=== PATIENT | female | born 1980 | race Caucasian/White ===

== ENCOUNTER → 2016-03-28 | Outpatient (CLI) | payer BC ==
--- NOTE | 2016-03-29 07:23 | CT ---
EXAMINATION TYPE: CT abdomen wo con DATE OF EXAM: 03/28/2016 7:33 PM COMPARISON: NONE HISTORY: Upper Abdominal pain with distension CT DLP: 245.7 mGycm Automated exposure control for dose reduction was used. TECHNIQUE: Helical acquisition of images was performed from the lung bases through the top of iliac crest to include entire abdomen. CONTRAST: Performed with Oral Contrast and without IV contrast. FINDINGS: Bilateral breast implants are in place. Visualized portions of the lungs are clear. There is no pleural or pericardial fluid. Within the abdomen, the liver, spleen and gallbladder are normal. Both adrenal glands are normal. There is no evidence of nephrolithiasis or hydronephrosis. The pancreas is unremarkable. There is no significant retroperitoneal adenopathy. There are some questionable focal thickening of the descending colon. The appendix is not visualized. Small bowel loops appear normal. No free air and no free fluid is seen. There is sclerosis of the sacroiliac joints. There is facet arthropathy in the lower lumbar spine. IMPRESSION: 1. QUESTIONABLE FOCAL THICKENING OF THE DESCENDING COLON. PLEASE CORRELATE CLINICALLY TO EXCLUDE COLI TIS. 2. SCLEROSIS OF THE SI JOINTS WHICH CAN BE SEEN IN THE INFLAMMATORY ARTHRITIDES WELL INFLAMMATO RY BOWEL DISEASE.
== END ==
LOC: RADCTMAIN 18:22 → MERGE 19:20
PROVIDERS: ATTEND Family Medicine
DX: R10.9 Unspecified abdominal pain (principal)
CPT/HCPCS: 74150

== ENCOUNTER → 2016-04-05 | Outpatient (CLI) | payer BC ==
--- NOTE | 2016-04-05 13:10 | US ---
EXAMINATION TYPE: US gallbladder DATE OF EXAM: 04/05/2016 12:40 PM COMPARISON: CT abdomen 8 days ago. CLINICAL HISTORY: Gen Abd Pain R10.84. Intermittent epigastric and RUQ pain, bloating, indigestion EXAM MEASUREMENTS: Liver Length: 14.6 cm Gallbladder Wall: 0.2 cm CBD: 0.3 cm Right Kidney: 9.2 x 3.3 x 3.7 cm TECHNOLOGIST IMPRESSION: Pancreas: visualized portions appear wnl Liver: appears wnl Gallbladder: no evidence of stones Evidence for sonographic Pickett's sign: no CBD: wnl Right Kidney: no evidence of hydronephrosis or mass IMPRESSION: No gallstones or ultrasound evidence for acute cholecystitis.
--- NOTE | 2016-04-05 14:53 | NM ---
EXAMINATION TYPE: NM hepatobiliary w CCK DATE OF EXAM: 04/05/2016 2:39 PM COMPARISON: Same day gallbladder ultrasound. HISTORY: Generalized abdominal pain per order. TECHNIQUE: After the intravenous administration of 5.4 mCi Tc 99m Mebrofenin hepatobiliary scintigrap hy is performed. Immediate images post injection. FINDINGS: There is satisfactory initial accumulation of tracer by the liver. The gallbladder is visualized wit hin 20 minutes. The small bowel activity is noted within 15th minutes. At one hour CCK was administ ered, patient was injected with 1.4 mcg of Kinevac, and gallbladder ejection fraction is calculated a t 8 %, markedly diminished from the normal range. Therefore there is no scintigraphic evidence of cy stic or common bile duct obstruction to suggest acute cholecystitis. Overall diminished ejection frac tion is consistent with chronic cholecystitis or gallbladder dyskinesia. IMPRESSION: Ejection fraction is 8%, diminished from the normal range. Scintographic findings are con sistent with gallbladder dyskinesia.
== END | disposition home or self-care (01) ==
LOC: RADUSMAIN 12:08
PROVIDERS: ATTEND Surgery
DX: K82.9 Disease of gallbladder, unspecified (principal); R10.84 Generalized abdominal pain
CPT/HCPCS: 76705; 78227; A9537; J2805

== ENCOUNTER 2016-04-19 08:36 | Day surgery (SDC) | payer BC ==
[2016-04-16 18:32] VITALS: BMI 29.4
[~2016-04-19 08:36] MED LIST: LACTATED RINGERS 1,000 ML IV SCH
== END 2016-04-19 09:54 | disposition home or self-care (01) ==
LOC: ORWHC2ENDO 08:36
PROVIDERS: ATTEND Surgery
DX: K92.2 Gastrointestinal hemorrhage, unspecified (principal)

== ENCOUNTER → 2016-06-03 | Outpatient (CLI) | payer BC ==
--- NOTE | 2016-06-03 10:24 | US ---
EXAMINATION TYPE: US OB <= 14 wk fetus DATE OF EXAM: 06/03/2016 9:52 AM COMPARISON: NONE CLINICAL HISTORY: 35-year-old female O46.91 Bleeding. Spotting last night Date of LMP: 03/14/2016 EXAM PERFORMED: Transvaginal (TV) and Transabdominal (TA) FINDINGS: EXAM MEASUREMENTS: GESTATIONAL AGE / DATING Physician Established: (10 weeks/2 days) EDC: 12/28/2016 Dates by LMP: (11 weeks/4 days) EDC: 12/19/2016 Dates by First Scan: (10 weeks/2 days) EDC: 12/28/2016 Dates by Current Scan for: ( 9 weeks/4 days +/- 6 days) EDC: 01/02/2017 MATERNAL ANATOMY Uterus: 8.0 x 4.5 x 4.2 cm. nabothian cyst 0.5 x 0.3 x 0.4 cm Right Ovary: 2.7 x 1.5 x 2.2 cm Left Ovary: not seen Post CDS / Adnexa: wnl Presence of free fluid: no Presence of corpus luteal cyst: no Presence of subchorionic bleed: no, though there may be a trace amount of fluid in the uterine cavity along the lower uterine segment, image 18. GESTATION / SURVEY MSD: 4.0 cm (9 weeks/4 days) Yolk Sac (normal less than 6mm): 0.5 Heart Rate: 138 bpm Rhythm: Normal IUP: Viable IUP BPD: 1.4 cm : 12w/1 FL: 0.6 cm: 12w/0 IMPRESSION: 1. Single live intrauterine with established gestational age of 10 weeks 2 days by prior da ting scan (not in the system). Current ultrasound biometry is calculated largely based on gestational sac (9 weeks 4 days, which is small and just barely concordant) as femur length and BPD were measuri ng large and out of range. Consider short interval follow-up in 2-3 weeks to assess for appropriate i nterval growth. 3. No significant perigestational bleed though a small amount of fluid is noted along the lower uteri ne segment. 4. Complete survey recommended at 18-20 weeks.
== END ==
LOC: RADUSWWP 09:19
PROVIDERS: ATTEND Obstetrics & Gynecology
DX: O26.891 Other specified pregnancy related conditions, first trimester (principal); N88.8 Other specified noninflammatory disorders of cervix uteri; N83.10 Corpus luteum cyst of ovary, unspecified side; Z3A.09 9 weeks gestation of pregnancy
CPT/HCPCS: 76801; 76817

== ENCOUNTER → 2016-06-26 | Outpatient (CLI) | payer BC ==
--- NOTE | 2016-06-26 11:20 | US ---
EXAMINATION TYPE: US OB TV Cervical Measurement DATE OF EXAM: 06/26/2016 11:11 AM COMPARISON: NONE REASON FOR EXAM: Per Ordering Physician?this transvaginal scan is to assess the CERVICAL LENGTH for i ncompetence or funneling. 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 GESTATIONAL AGE / DATING Physician Established: (13 weeks/4 days) EDC: 12/28/2016 MATERNAL/ SURVEY CERVICAL LENGTH (transvaginal: norm> 2.5cm): 2.7 cm Ultrasound evidence of shortened cervix? NO Ultrasound evidence of funneling? NO HEART RATE: 161 bpm RHYTHM: Normal IMPRESSION: Cervical length measures 2.7 cm and slightly outside the normal limits. Correlate clinically.
== END | disposition home or self-care (01) ==
LOC: RADUSWWP 10:33
PROVIDERS: ATTEND Obstetrics & Gynecology
DX: R93.8 Abnormal findings on diagnostic imaging of other specified body structures (principal)
CPT/HCPCS: 76817

== ENCOUNTER 2016-12-01 21:15 | Inpatient (IN) | payer BC ==
[2016-12-01] MEDS ORDERED: OXYTOCIN 10 UNIT/ML 1 ML VIAL IM PRN (22:26)
[2016-12-01] MEDS ORDERED: METHYLERGONOVINE 0.2 MG/ML 1 ML AMP IM PRN (22:26)
[2016-12-01] MEDS ORDERED: TERBUTALINE 1 MG/ML VIAL SQ PRN (22:26)
[2016-12-01] MEDS ORDERED: CARBOPROST TROMETHAMINE 250 MCG/ML 1 ML AMP IM PRN (22:26)
[2016-12-01] MEDS ORDERED: LIDOCAINE 1% (PF) 10 MG/ML (30 ML SDV) SQ PRN (22:26)
[2016-12-01] MEDS ORDERED: AMPICILLIN 2,000 MG in SODIUM CHLORIDE 0.9% 100 ML IVPB STA (22:37)
[2016-12-02 00:29] LABS: Basophils % (A) 0 %; CH 30.1; CHCM 34.1; Eosinophils # (A) 0.1 k/uL (0-0.7); Eosinophils % (A) 1 %; HCT 36.5 % (34.0-46.0); HDW 3.05; HGB 12.1 gm/dL (11.4-16.0); Luc # (Auto) 0.17; Luc % (Auto) 2; Lymphocytes # (A) 1.4 k/uL (1.0-4.8); Lymphocytes % (A) 14 %; MCH 29.3 pg (25.0-35.0); MCHC 33.1 g/dL (31.0-37.0); MCV 88.6 fL (80.0-100.0); Monocytes # (A) 0.5 k/uL (0-1.0); Monocytes % (A) 6 %; Neutrophils # (A) 7.3 k/uL (1.3-7.7); Neutrophils % (A) 77 %; RBC 4.12 m/uL (3.80-5.40); WBC 9.4 k/uL (3.8-10.6); WBC (Perox) 9.23
[2016-12-02 00:37] LABS: Uric Acid 5.1 mg/dL (3.7-7.4)
[2016-12-02 00:39] VITALS: BMI 33.7
[2016-12-02 00:39] LABS: Appearance,Urine Clear (Clear); Bilirubin,Urine Negative (Negative); Glucose,Urine (UA) Negative (Negative); Ketones,Urine Negative (Negative); Leukocyte Esterase,Urine Negative (Negative); Nitrite,Urine Negative (Negative); PH, Urine 6.5 (5.0-8.0); Protein,Urine Negative (Negative); Specific Gravity,Urine 1.013 (1.001-1.035); UA Billing (MACRO vs. MICRO) CHEM; Urobilinogen,Urine <2.0 mg/dL (<2.0)
[2016-12-02] MEDS: LACTATED RINGERS 1,000 ML IV SCH ×6 (00:43→21:06)
[2016-12-02] MEDS: AMPICILLIN 1,000 MG in SODIUM CHLORIDE 0.9% 50 ML IVPB SCH ×2 (03:35→07:30)
[2016-12-02] MEDS: BUTORPHANOL 1 MG/ML 1 ML VIAL IV PRN ×2 (03:50→03:57)
[2016-12-02] MEDS ORDERED: OXYTOCIN 20 UNITS/1000 ML NS 1,000 ML IV SCH (05:30)
[2016-12-02] MEDS ORDERED: MORPHINE SULFATE (PF) 0.3 MG/0.3 ML SYR ONE (08:21)
[2016-12-02] MEDS ORDERED: NALBUPHINE 10 MG/ML AMPUL ONE (08:21)
[2016-12-02] MEDS ORDERED: ONDANSETRON 4 MG/2 ML VIAL ONE (08:21)
[2016-12-02] MEDS ORDERED: KETOROLAC 30 MG/ML 1 ML VIAL ONE (08:21)
[2016-12-02] MEDS ORDERED: OXYTOCIN 10 UNIT/ML 1 ML VIAL ONE (08:21)
[2016-12-02] MEDS ORDERED: LACTATED RINGERS 1,000 ML BAG IV ONE (08:21)
[2016-12-02] MEDS ORDERED: ePHEDrine 50 MG/ML 1 ML AMP ONE (08:21)
[2016-12-02] MEDS ORDERED: ceFAZolin 1,000 MG VIAL ONE (08:21)
[2016-12-02] MEDS ORDERED: diphenhydrAMINE 50 MG/ML 1 ML VIAL IVP PRN ×3 (08:57→09:42)
[2016-12-02] MEDS ORDERED: MORPHINE SULFATE 4 MG/ML SYRINGE IVP PRN (08:57)
[2016-12-02] MEDS ORDERED: NALOXONE 0.4 MG/ML 1 ML VIAL IV PRN (08:57)
[2016-12-02] MEDS ORDERED: ONDANSETRON 4 MG/2 ML VIAL IVP PRN ×2 (08:57→09:42)
--- NOTE | 2016-12-02 09:17 | P.HPOB ---
History of Present Illness H&P Date: 12/02/16 Chief Complaint: Spontaneous rupture of membranes This is a very pleasant 36-year-old 1 para 0 at 36-2/7 weeks that presented to labor and delivery on 10:15 with complaints of rupture of membranes. She was grossly ruptured and admitted to labor and delivery. Pitocin augmentation was started as she was fingertip dilated. This morning on exam patient was noted to be in the breech presentation therefore Pitocin augmentation was discontinued and counseling was done for a primary low transverse section. Review of Systems Constitutional: Denies fatigue, Denies fever Cardiovascular: Reports edema, Denies chest pain Respiratory: Denies cough, Denies dyspnea Gastrointestinal: Denies diarrhea, Denies nausea, Denies vomiting Psychiatric: Denies anxiety, Denies depression Past Medical History Past Medical History: GERD/Reflux, Osteoarthritis (OA) Additional Past Medical History / Comment(s): SLIGHT HEART MURMUR History of Any Multi-Drug Resistant Organisms: None Reported Past Surgical History: Breast Surgery, Hernia Repair Additional Past Surgical History / Comment(s): OPEN HEART A CHILD VSD REPAIR, BREAST AUGMENTATION Past Anesthesia/Blood Transfusion Reactions: Motion Sickness Past Psychological History: No Psychological Hx Reported Smoking Status: Never smoker Past Alcohol Use History: Rare Past Drug Use History: None Reported - Past Family History Mother Family Medical History: No Reported History Medications and Allergies Home Medications Medication Instructions Recorded Confirmed Type No Known Home Medications [No 04/16/16 12/01/16 History Known Home Medications] Pnv,Calcium 72/Iron/Folic Acid 1 tab PO ONCE 12/01/16 12/01/16 History [ Plus Tablet] Allergies Allergy/AdvReac Type Severity Reaction Status Date / Time No Known Allergies Allergy Verified 04/16/16 18:16 Exam Osteopathic Statement: *. No significant issues noted on an osteopathic structural exam other than those noted in the History and Physical/Consult. - Vital Signs Vital signs: Vital Signs Temp Pulse Resp BP 12/01/16 22:32 98.1 F 84 16 140/90 12/01/16 21:22 98.1 F 84 16 140/90 Intake and Output 12/01/16 12/02/16 12/02/16 22:59 06:59 14:59 Other: # Voids 2 Weight 75.75 kg - OBG Physical Exam Abdomen: bowel sounds normal Uterus: Gravid Uterus: enlarged Results Result Diagrams: 12/02/16 00:07 Assessment and Plan (1) Full-term premature rupture of membranes, unspecified as to length of time between rupture and onset of labor Narrative/Plan: Primary low transverse section was performed this morning with delivery of viable female at 839. Baby B was in a breech presentation. 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 Weight of the 5 lbs. 0 oz. Apgars of 9 and 9 at one and 5 minutes respectively. Routine postoperative care is begun Status: Acute
[2016-12-02] MEDS ORDERED: CITRIC ACID-SODIUM CITRATE 15 ML CUP PO ONE (09:20)
--- NOTE | 2016-12-02 09:23 | P.OP ---
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 She was then prepped and draped in normal sterile fashion in the dorsal supine position. A Pfannenstiel skin incision was made with a scalpel and carried through the underlying layer of fascia. The fascia was then incised in the midline and extended laterally. The superior aspect of the fascial incision was grasped with Liz[place] clamps, elevated and underlying rectus muscle was dissected off sharply. The inferior aspect of the fascial incision was then grasped with [place] clamps, elevated and underlying rectus muscles dissected off sharply once again. The rectus muscles were in the peritoneum was identified and entered. The incision was then extended superiorly and inferiorly with good visualization the bladder. The bladder blade was then inserted and the vesicouterine peritoneum was identified. The bladder flap was then created using sharp and blunt dissection. The bladder blade was then reinserted into the pelvis. Hysterotomy incision was made sharply with the scalpel and the was delivered in the normal breech fashion. The was then handed off to awaiting RN after the cord was doubly clamped and cut. The placenta was then delivered manually and the uterus was cleared of all clots and debris. A unicornuate uterus was noted at this point the responsible for labor/rupture of membranes at 36-2/7 weeks. Uterus was then closed with a running locked suture of 0 Vicryl hemostasis was appreciated. The pelvis was then copiously irrigated. The hysterotomy site was inspected once again hemostasis was noted. The uterus was then returned to the abdomen, the fascia was then closed with 0 Vicryl in a running fashion from one lateral edge the midline and the other lateral edge the midline. The subcutaneous tissue was inspected hemostasis was appreciated and the skin was closed with 4-0 Vicryl in a subarticular fashion Steri-Strips and sterile dressings were applied. All counts were correct 2 patient tolerated procedure well and was taken the recovery room awake and in stable condition
[2016-12-02] MEDS ORDERED: LACTATED RINGERS 1,000 ML IV SCH (09:30)
[2016-12-02] MEDS ORDERED: ZOLPIDEM 5 MG TAB PO PRN (09:42)
[2016-12-02] MEDS ORDERED: diphenhydrAMINE 25 MG CAP PO PRN (09:42)
[2016-12-02] MEDS ORDERED: ACETAMINOPHEN TAB 325 MG TAB PO PRN (09:42)
[2016-12-02] MEDS ORDERED: METOCLOPRAMIDE 5 MG/ML 2 ML VIAL IVP PRN (09:42)
[2016-12-02] MEDS ORDERED: diphenhydrAMINE 50 MG CAP PO PRN (09:42)
[2016-12-02] MEDS: KETOROLAC 30 MG/ML 1 ML VIAL IVP PRN (13:55)
[2016-12-02] MEDS: SENNOSIDES-DOCUSATE SODIUM 1 EACH TAB PO SCH (21:06)
[2016-12-03] MEDS: KETOROLAC 30 MG/ML 1 ML VIAL IVP PRN
[2016-12-03] MEDS: LACTATED RINGERS 1,000 ML IV SCH
[2016-12-03 07:19] LABS: Basophils % (A) 0 %; CH 30.2; CHCM 33.5; Eosinophils # (A) 0.1 k/uL (0-0.7); Eosinophils % (A) 1 %; HCT 31.3 % (34.0-46.0); HDW 2.98; HGB 10.2 gm/dL (11.4-16.0); Luc # (Auto) 0.16; Luc % (Auto) 2; Lymphocytes # (A) 1.4 k/uL (1.0-4.8); Lymphocytes % (A) 14 %; MCH 29.5 pg (25.0-35.0); MCHC 32.6 g/dL (31.0-37.0); MCV 90.4 fL (80.0-100.0); Mean Platelet Volume 8.1; Monocytes # (A) 0.5 k/uL (0-1.0); Monocytes % (A) 5 %; Neutrophils # (A) 7.5 k/uL (1.3-7.7); Neutrophils % (A) 78 %; RBC 3.47 m/uL (3.80-5.40); RDW 14.3 % (11.5-15.5); WBC 9.6 k/uL (3.8-10.6); WBC (Perox) 10.06
--- NOTE | 2016-12-03 07:59 | P.PN ---
Progress Note - Text Date: 12/03/2016 Time: 0753 The patient is status post section Vital signs stable VAS: 0-10 Patient has no complaints of pain. The patient incurred some minimal itching yesterday, this itching is now subsiding. Pain meds to be managed by service.
[2016-12-03] MEDS: SENNOSIDES-DOCUSATE SODIUM 1 EACH TAB PO SCH ×2 (11:39→19:54)
--- NOTE | 2016-12-03 11:45 | P.PNOBGPC ---
Subjective - Subjective Principal diagnosis: Postop day 1 s/p LTCS Interval history: Elisha is doing well on this postoperative day #1. She is ambulating and voiding without difficulty. Her pain is controlled. She is tolerating clear liquids, and we will advance her diet to regular for lunch. He states her lochia is minimal and she is breast-feeding with some difficulty. Patient reports: Reports appetite normal, Reports voiding normally, Reports pain well controlled, Reports ambulating normally : doing well (Under the bili lights) Objective - Vital Signs Latest vital signs: Vital Signs Temp Pulse Pulse Resp BP BP Pulse Ox 12/03/16 11:00 18 12/03/16 09:00 18 12/03/16 08:00 98.3 F 86 16 112/72 97 12/03/16 07:00 16 12/03/16 05:00 15 12/03/16 04:00 98 F 89 15 128/72 12/03/16 03:00 15 12/03/16 01:00 15 12/03/16 00:00 98 F 89 15 125/70 12/02/16 23:00 15 12/02/16 21:00 15 12/02/16 20:00 98 F 90 15 128/73 12/02/16 19:00 16 12/02/16 17:00 16 98 12/02/16 16:00 97.8 F 78 16 129/75 98 12/02/16 15:00 16 98 12/02/16 13:58 20 96 12/02/16 12:44 97.6 F 90 20 110/74 96 12/02/16 12:22 97.6 F 90 20 110/74 96 Intake and Output 12/02/16 12/03/16 12/03/16 22:59 06:59 14:59 Intake Total 1000 0 Output Total 800 600 Balance -800 400 0 Intake: Intake, IV Titration 1000 0 Amount Lactated Ringers 1,000 ml 0 @ 125 mls/hr IV .Q8H JONG Rx#:[id number] Lactated Ringers 1,000 ml 1000 @ 125 mls/hr IV .Q8H JONG Rx#:[id number] Output: Urine 300 600 Uretheral (Harris) 200 Estimated Blood Loss 500 Other: # Voids 1 # Bowel Movements 0 - Exam Lungs: bilateral: normal Extremities: Present: normal Abdomen: Present: normal appearance, soft Incision: Present: normal, dry Uterus: Present: firm - Labs Labs: Abnormal Lab Results - Last 24 Hours (Table) 12/03/16 Range/Units 06:59 RBC 3.47 L (3.80-5.40) m/uL Hgb 10.2 L (11.4-16.0) gm/dL Hct 31.3 L (34.0-46.0) % Plt Count 142 L (150-450) k/uL Assessment and Plan (1) Full-term premature rupture of membranes, unspecified as to length of time between rupture and onset of labor Narrative/Plan: Will advance diet this afternoon. We will continue to use oral pain medications as needed per patient request. Anticipate discharge home tomorrow if continues to do well. Current Visit: Yes Status: Acute Code(s): O42.92 - FULL-TERM NOÉ ROM, UNSP TIME BETW RUPTURE AND ONSET LABOR SNOMED Code(s): 02523765 (2) Unicornate uterus Current Visit: Yes Status: Acute Code(s): Q51.4 - UNICORNATE UTERUS SNOMED Code(s): 8499385
[2016-12-03] MEDS: IBUPROFEN 600 MG TAB PO PRN ×2 (14:27→19:32)
[2016-12-03] MEDS: Acetaminophen-Codeine 300-30mg TAB PO PRN ×2 (16:04→23:16)
[2016-12-04] MEDS: Acetaminophen-Codeine 300-30mg TAB PO PRN ×3 (06:53→20:53)
[2016-12-04] MEDS: SENNOSIDES-DOCUSATE SODIUM 1 EACH TAB PO SCH ×2 (07:45→20:56)
[2016-12-04] MEDS: LACTATED RINGERS 1,000 ML IV SCH (07:46)
--- NOTE | 2016-12-04 08:12 | P.PNOBGPC ---
Subjective - Subjective Principal diagnosis: day #2 Interval history: Patient continues to do well on this day #2. She is ambulating and voiding without difficulty. Lochia is minimal. She is using oral pain medication for discomfort. He is struggling with breast-feeding as her milk has not come in. Her infant girl is under bili lights currently Patient reports: Reports appetite normal, Reports voiding normally, Reports pain well controlled, Reports ambulating normally : doing well (Being treated for hyperbilirubinemia under the bili lights) Objective - Vital Signs Latest vital signs: Vital Signs Temp Pulse Pulse Resp BP BP Pulse Ox 12/04/16 04:00 98.2 F 79 16 109/64 12/03/16 23:20 97.8 F 74 16 112/76 12/03/16 20:00 98 F 70 16 117/76 12/03/16 16:00 98.4 F 81 16 119/79 99 12/03/16 13:00 16 12/03/16 11:00 18 12/03/16 09:00 18 - Exam Lungs: bilateral: normal Extremities: Present: normal Abdomen: Present: normal appearance, soft Incision: Present: normal, dry, intact Assessment and Plan (1) Full-term premature rupture of membranes, unspecified as to length of time between rupture and onset of labor Narrative/Plan: We'll continue routine postoperative care of this patient. Given the is being treated under the bili lights will anticipate discharge later this week. Current Visit: Yes Status: Acute Code(s): O42.92 - FULL-TERM NOÉ ROM, UNSP TIME BETW RUPTURE AND ONSET LABOR SNOMED Code(s): 21436156 (2) Unicornate uterus Current Visit: Yes Status: Acute Code(s): Q51.4 - UNICORNATE UTERUS SNOMED Code(s): 8824744
[2016-12-04] MEDS: IBUPROFEN 600 MG TAB PO PRN ×3 (11:34→23:55)
[2016-12-04] MEDS ORDERED: SIMETHICONE 80 MG CHEWABLE PO PRN (20:38)
[2016-12-05] MEDS: Acetaminophen-Codeine 300-30mg TAB PO PRN ×2 (04:24→08:18)
[2016-12-05] MEDS: IBUPROFEN 600 MG TAB PO PRN ×2 (05:58→12:23)
[2016-12-05] MEDS: SENNOSIDES-DOCUSATE SODIUM 1 EACH TAB PO SCH (08:18)
[2016-12-05 08:38] VITALS: BP 120/82; PULSE 91; RESP 18; TEMP 97.6
--- NOTE | 2016-12-05 09:12 | P.PNOBGPC ---
Subjective - Subjective Principal diagnosis: postop day 3, LTCS Interval history: on postop day 3 Sean is doing well. She is ambulating, and voiding without difficulty. She is tolerating a regular diet without nausea or vomiting. Her pain is controlled with oral medications. Her lochia is minimal and she is still struggling with breast-feeding but her milk appears to be coming in. she wishes discharge home today Patient reports: Reports appetite normal, Reports voiding normally, Reports pain well controlled, Reports ambulating normally [place]: doing well Objective - Vital Signs Latest vital signs: Vital Signs Temp Pulse Resp BP Pulse Ox 12/05/16 08:00 97.6 F 91 18 120/82 12/05/16 00:00 97.9 F 73 16 129/73 100 12/04/16 20:30 98.7 F 87 16 126/87 100 12/04/16 16:00 98.8 F 70 18 123/85 100 - Exam Lungs: bilateral: normal Extremities: Present: normal Abdomen: Present: normal appearance Incision: Present: normal, dry, intact Uterus: Present: normal, firm, bogginess Assessment and Plan Assessment: Will plan discharge home, discharge instructions are reviewed with the patient in detail, perceptions are given for Motrin and Tylenol No. 3. She was 30 given a perception for a breast pump (1) Full-term premature rupture of membranes, unspecified as to length of time between rupture and onset of labor Current Visit: Yes Status: Acute Code(s): O42.92 - FULL-TERM NOÉ ROM, UNSP TIME BETW RUPTURE AND ONSET LABOR SNOMED Code(s): 82526402 (2) Unicornate uterus Current Visit: Yes Status: Acute Code(s): Q51.4 - UNICORNATE UTERUS SNOMED Code(s): 7458287
--- NOTE | 2016-12-05 09:14 | P.DS ---
Providers Date of admission: 12/01/16 22:09 Expected date of discharge: 12/05/16 Attending physician: Eri Nichole Primary care physician: Eri Nichole - Discharge Diagnosis(es) (1) Full-term premature rupture of membranes, unspecified as to length of time between rupture and onset of labor is a very pleasant 36-year-old 1 para 0 that presented to labor and delivery on 10:15 with spontaneous rupture of membranes. She was 36 weeks and 2 days. She was not in labor at that time therefore Pitocin augmentation was begun. The next morning patient was noted to be 1 cm and was in a breech presentation. Therefore primary low transverse section was performed. For further details on the please see the operative report. Postoperative care has been benign on day #3 she is feeling well ambulatory and voiding without difficulty. She is is tolerating a regular diet without nausea or vomiting and she denies concerns. Her pain is controlled with by mouth medications. She is breast-feeding with some difficulty as her milk is not coming in yet. Current Visit: Yes Status: Acute (2) Unicornate uterus Current Visit: Yes Status: Acute Plan - Discharge Summary New Discharge Prescriptions: No Action No Known Home Medications [No Known Home Medications] Pnv,Calcium 72/Iron/Folic Acid [ Plus Tablet] 1 tab PO ONCE Discharge Medication List No Known Home Medications [No Known Home Medications] 04/16/16 [History] Pnv,Calcium 72/Iron/Folic Acid [ Plus Tablet] 1 tab PO ONCE 12/01/16 [ History] Follow up Appointment(s)/Referral(s): Eri Nichole DO [Primary Care Provider] - 2 Weeks Patient Instructions/Handouts: (DC)
== END 2016-12-05 13:01 | disposition home or self-care (01) | DRG 766 ==
LOC: FBPOP 21:15 → 4FBP 22:09
PROVIDERS: ADMIT Obstetrics & Gynecology; ATTEND Obstetrics & Gynecology Obstetrics
PROC: 10D00Z1 Extraction of Products of Conception, Low, Open Approach (ICD-10-PCS; principal; 2016-12-02 09:15)
DX: O32.1XX0 Maternal care for breech presentation, not applicable or unspecified (principal); O42.913 Preterm premature rupture of membranes, unspecified as to length of time between rupture and onset of labor, third trimester; Q51.4 Unicornate uterus; Z3A.36 36 weeks gestation of pregnancy; Z37.0 Single live birth
CPT/HCPCS: 59025; 81003; 84112; 84450; 84460; 84550; 85025; 88307; 99213

== ENCOUNTER → 2017-08-21 | Outpatient (CLI) | payer BC ==
--- NOTE | 2017-08-21 07:59 | MR ---
EXAMINATION TYPE: MR brain wo/w con DATE OF EXAM: 08/21/2017 COMPARISON: None HISTORY: Neoplasm / New Onset Severe Headaches / Confusion TECHNIQUE: Multiplanar, multisequence images of the brain and brainstem is performed without and with IV contras t, utilizing 7 mL intravenous Gadavist . FINDINGS: Diffusion weighted images demonstrate no evidence of a recent infarct or other diffusion ab normality. There is no extra-axial fluid collection or significant white matter signal abnormality. The ventricular system and cisternal spaces are normal in size and appearance. The brain volume is age appropriate. Midline structures demonstrate normal morphology. The craniocervical junction appears within normal limits. Post contrast images demonstrate no abnormal enhancement. Changes of chronic sinusitis noted. Clivus appears to be either pneumatized or diminutive in size. IMPRESSION: 1. No acute intracranial process. 2. Changes of chronic sinusitis
== END | disposition home or self-care (01) ==
LOC: RADMRIMAIN 06:07
PROVIDERS: ATTEND Psychiatry & Neurology Neurology
DX: R51 Headache (principal); H53.9 Unspecified visual disturbance
CPT/HCPCS: 70553; A9581

== ENCOUNTER → 2019-03-27 | Outpatient (CLI) | payer BC ==
[2019-03-27 18:55] LABS: ALT 22 U/L (8-44); AST 25 U/L (13-35); African American GFR (CKD) 109.2 (60.0-200.0); Glucose 102 mg/dL (70-110); Non-African American GFR(CKD) 94.2 (60.0-200.0)
[2019-03-27 18:56] LABS: Insulin Level 12.1 mIU/mL (3.0-25.0)
[2019-03-27 19:03] LABS: Prolactin 6.6 ng/mL (2.8-29.2)
[2019-03-27 19:04] LABS: Estradiol 45.4 pg/mL; Follicle Stimulating Hormone 7.3 mIU/mL
[2019-03-27 19:06] LABS: HCG,Quantitative Serum <2.0 mIU/mL
[2019-03-27 19:44] LABS: Thyroid Peroxidase Antibodies <28.0 U/mL (0.0-60.0)
[2019-03-29 03:24] LABS: Varicella IgM Antibody 0.28 INDEX (<=0.90)
[2019-03-29 21:48] LABS: Anti-Mullerian Hormone 2.72 ng/mL (0.18 - 5.68)
== END | disposition home or self-care (01) ==
LOC: LABWHC1 08:44
PROVIDERS: ATTEND Physician Assistant
DX: N92.6 Irregular menstruation, unspecified (principal)
CPT/HCPCS: 36415; 82306; 82397; 82565; 82670; 82947; 83001; 83036; 83525; 84146; 84402; 84403; 84439; 84443; 84450; 84460; 84480; 84520; 84702; 86376; 86762; 86787; 86800; 86850; 86900; 86901